=== PATIENT | male | born 1995 | race Caucasian/White ===

== ENCOUNTER 2019-02-24 18:38 | Emergency (ER) | payer OTHER ==
--- NOTE | 2019-02-24 19:10 | ER Document Report ---
ED Medical Screen (RME) - General Chief Complaint: Ankle Pain Stated Complaint: ANKLE INJURY Time Seen by Provider: 02/24/19 19:04 Mode of Arrival: Ambulatory Information source: Patient Notes: 23-year-old male presented to ED for complaint of pain to the right foot and ankle. He states he was seen at [facility] a week ago and his splint put on. He states he was told it was a sprain and splint was put on. He states there was no crepitus or discoloration to his toes. He states he has been walking on the splint using his crutches as he was ordered and today he felt a sharp pain and his toes became purple. I have released the splint enough to see that the purple is just to the end of the toes it is not to the foot itself also. Patient will be re-x-rayed for his foot and ankle and be seen by another provider. I have greeted and performed a rapid initial assessment of this patient. A comprehensive ED assessment and evaluation of the patient, analysis of test results and completion of medical decision making process will be conducted by an additional ED providers. Dictation of this chart was performed using voice recognition software; therefore, there may be some unintended grammatical errors. TRAVEL OUTSIDE OF THE [place] IN LAST 30 DAYS: No - Related Data Allergies/Adverse Reactions: No Known Allergies Allergy (Unverified 02/24/19 18:41) Physical Exam - Vital signs Vitals: Temp Pulse Resp BP Pulse Ox 98.2 F 66 16 115/55 L 98 02/24/19 18:56 02/24/19 18:56 02/24/19 18:56 02/24/19 18:56 02/24/19 18:56 Course - Vital Signs Vital signs: Temp Pulse Resp BP Pulse Ox 98.2 F 66 16 115/55 L 98 02/24/19 18:56 02/24/19 18:56 02/24/19 18:56 02/24/19 18:56 02/24/19 18:56
--- NOTE | 2019-02-24 19:53 | RADIOLOGY REPORT (SQ) ---
EXAM DESCRIPTION: ANKLE RIGHT COMPLETE COMPLETED DATE/TIME: 02/24/2019 7:31 pm REASON FOR STUDY: pain and injury last Tuesday purple today COMPARISON: Concurrent foot radiographs NUMBER OF VIEWS: Three views. TECHNIQUE: AP, lateral, and oblique radiographic images acquired of the right ankle. LIMITATIONS: None. FINDINGS: MINERALIZATION: Normal. BONES: Small osseous bodies adjacent to the tip of the distal fibula, likely representing small avuls ion fractures. No additional fracture is seen. Osseous alignment is normal. JOINTS: Joint spaces are normal. SOFT TISSUES: Diffuse soft tissue swelling. No radiopaque foreign body or soft tissue gas. OTHER: No other significant finding. IMPRESSION: Small avulsion fractures of the tip of the distal fibula with diffuse soft tissue jersey smith. TECHNICAL DOCUMENTATION: JOB ID: [id number] [employer]- All Rights Reserved Reading location - IP/workstation name: [email or web address]
--- NOTE | 2019-02-24 19:54 | RADIOLOGY REPORT (SQ) ---
EXAM DESCRIPTION: FOOT RIGHT COMPLETE COMPLETED DATE/TIME: 02/24/2019 7:31 pm REASON FOR STUDY: pain and injury last Tuesday purple today COMPARISON: Concurrent right ankle radiograph NUMBER OF VIEWS: Three views. TECHNIQUE: AP, lateral and oblique radiographic images acquired of the right foot. LIMITATIONS: None. FINDINGS: MINERALIZATION: Normal. BONES: Small avulsion fractures of the tip of the distal fibula are not appreciated on this exam. No additional fracture. No sinister bone lesion. JOINTS: Joint spaces are normal. SOFT TISSUES: Diffuse soft tissue swelling. No radiopaque foreign body or soft tissue gas. OTHER: No other significant finding. IMPRESSION: Diffuse soft tissue swelling. No acute fracture dislocation of the right foot. TECHNICAL DOCUMENTATION: JOB ID: [id number] [employer] All Rights Reserved Reading location - IP/workstation name: [email or web address]
--- NOTE | 2019-02-24 20:50 | ER Document Report ---
ED General - General Chief Complaint: Ankle Pain Stated Complaint: ANKLE INJURY Time Seen by Provider: 02/24/19 19:04 Mode of Arrival: Ambulatory Information source: Patient TRAVEL OUTSIDE OF THE [place] IN LAST 30 DAYS: No - HPI Patient complains to provider of: Right foot ankle and calf pain Onset: Last week Onset/Duration: Sudden Quality of pain: Sharp Severity: Severe Pain Level: 4 Associated symptoms: None Exacerbated by: Movement, Walking Relieved by: Denies Similar symptoms previously: No Recently seen / treated by doctor: No Notes: Patient is a 23-year-old male coming in today chief complaint of right foot, ankle, calf pain. Last Tuesday he fell while rollerskating[place]. He ended up seeing the orthopedic doctor a few days ago. He had a splint put on and was told that he had a little fracture. Tonight he was having severe shooting pain from his foot all the way up his leg. When he looked down at his toes from a splint he realized that his toes were discolored. He still having quite a bit of pain in his calf and his ankle even now. No chest pain or shortness of breath - Related Data Allergies/Adverse Reactions: No Known Allergies Allergy (Unverified 02/24/19 18:41) Past Medical History - General Information source: Patient - Social History Smoking Status: Never Smoker Family History: Reviewed & Not Pertinent Patient has suicidal ideation: No Patient has homicidal ideation: No Renal/ Medical History: Denies: Hx Peritoneal Dialysis Review of Systems - Review of Systems Notes: Constitutional: No fevers. No chills. EENT: No eye redness. No eye pain. No ear pain. No sore throat. Cardiovascular: No chest pain. No palpitations. Respiratory: No cough. No shortness of breath. No respiratory distress. Gastrointestinal: No abdominal pain. No nausea, vomiting, or diarrhea. Genitourinary: Atraumatic. No lesions. No pain. No discharge. Musculoskeletal: Positive right calf pain, positive right ankle pain, positive right foot pain, positive right foot and ankle swelling. Skin: No rash or lesions. Lymphatic: No swollen lymph nodes. Neurologic: No headache. No syncope. Psychiatric: No suicidal or homicidal ideation. Physical Exam - Vital signs Vitals: Temp Pulse Resp BP Pulse Ox 98.2 F 66 16 115/55 L 98 02/24/19 18:56 02/24/19 18:56 02/24/19 18:56 02/24/19 18:56 02/24/19 18:56 - Notes Notes: General: Well-developed, well-nourished. In no acute distress. Non-toxic appearing. Cardiac: Well-perfused. Regular rate and rhythm. No murmurs, rubs, or gallops. Pulmonary: No respiratory distress. No cyanosis. Bilateral lung fiels are clear to auscultation. Abdominal: Non-distended. Non-rigid. Bowels sounds are present in all four quadrants. No guarding or rebound. HEENT: Head is atraumatic. Conjunctivae not reddened. No tearing. PERRL. EOMI. Orbits atraumatic. No periorbital swelling or erythema. Oropharynx is without erythema, swelling, or exudates. Neck: Supple. No adenopathy. No meningismus. Dermatologic: Warm with good turgor. No rash. Atraumatic. Chest: Atraumatic. No chest wall tenderness to palpation. Musculoskeletal: Right lower extremity examined. Moderate soft tissue swelling of the right foot, ankle and into the distal calf. Diffuse tenderness to palpation with point tenderness over the lateral malleolus of the right ankle. There is ecchymosis to the bases of the toes. No cyanosis. Cap refill less than 2 seconds Genitourinary: Examination deferred Neurologic: No gross neurologic deficits. Psychiatric: Normal mood. Course - Re-evaluation Re-evalutation: 02/24/19 20:51 We will go ahead and get a venous ultrasound of the right lower extremity sure there is not a blood clot from the immobilization of the lower leg. If this is normal. We will go ahead and put a posterior splint and have him follow-up accordingly with Ortho. 02/24/19 22:34 Venous Doppler tech gave me wet read of negative . We will re-splint and send him back to his orthopedist. - Vital Signs Vital signs: Temp Pulse Resp BP Pulse Ox 98.2 F 66 16 115/55 L 98 02/24/19 18:56 02/24/19 18:56 02/24/19 18:56 02/24/19 18:56 02/24/19 18:56 Discharge - Discharge Clinical Impression: Avulsion fracture of right ankle Qualifiers: Encounter type: initial encounter Fracture type: closed Qualified Code(s): S82.891A - Other fracture of right lower leg, initial encounter for closed fracture Condition: Good Disposition: HOME, SELF-CARE Instructions: Avulsion Fracture of the Ankle ([facility]) Additional Instructions: Please continue taking her naproxen. We will give you some Percocet as well to take for pain. Splint will be reapplied here. Please follow-up with your orthopedic doctor at your next appointed visit. Prescriptions: Oxycodone HCl/Acetaminophen [Percocet 5-325 mg Tablet] 1 - 2 tab PO Q4H PRN #15 tablet PRN Reason: Referrals: ORTHOPEDIST, YOUR [Other] - 02/26/19
[2019-02-24 23:27] VITALS: BP 115/65
--- NOTE | 2019-02-25 02:25 | RADIOLOGY REPORT (SQ) ---
EXAM DESCRIPTION: Right lower extremity venous duplex 02/25/2019 1:23 AM CDT CLINICAL HISTORY: 23 years, Male, pain left leg / Hx clots COMPARISON: [None] TECHNIQUE: Utilizing a linear array transducer, real-time ultrasound evaluation of the right lower extremity was performed. Color Doppler imaging was used to assess vascular flow. FINDINGS: The right common femoral and proximal/mid/distal superficial femoral veins are normal in caliber and compressibility. There is normal directional flow. The right popliteal vein is normal in appearance. There is normal directional flow and normal compressibility. IMPRESSION: No evidence of right lower extremity deep venous thrombosis.
== END 2019-02-24 23:27 | disposition home or self-care (01) ==
LOC: ER 18:38
DX: S82.831A Other fracture of upper and lower end of right fibula, initial encounter for closed fracture (principal); M79.671 Pain in right foot; M25.571 Pain in right ankle and joints of right foot; M79.661 Pain in right lower leg; V00.121A Fall from non-in-line roller-skates, initial encounter
CPT/HCPCS: 93971; 99284